=== PATIENT | male | born 1965 | race Two or more races ===

== ENCOUNTER 2022-11-24 15:12 | Emergency (ER) | payer OTHER ==
[~2022-11-24] VITALS: Ht 177.8 cm; Wt 81.6 kg
[2022-11-24] MEDS ORDERED: LOSARTAN POTASS25 MG (15:59)
== END 2022-11-24 17:42 | disposition home or self-care (01) ==
LOC: ER 15:12
DX: M25.571 Pain in right ankle and joints of right foot (principal)